=== PATIENT | male | born 1970 | race Caucasian/White ===

== ENCOUNTER 2018-10-22 23:01 | Emergency (ER) | payer OTHER ==
[~2018-10-22] VITALS: Ht 185.4 cm; Wt 111.1 kg
[2018-10-22] MEDS ORDERED: ZYLOPRIM100 MG PO (23:15)
[2018-10-22] MEDS ORDERED: PREDNISONE20 MG PO (23:16)
== END 2018-10-22 23:55 | disposition home or self-care (01) ==
LOC: ED 23:01
DX: M10.9 Gout, unspecified (principal); I10 Essential (primary) hypertension; F17.200 Nicotine dependence, unspecified, uncomplicated; Z88.0 Allergy status to penicillin; Z91.038 Other insect allergy status; Z79.899 Other long term (current) drug therapy
CPT/HCPCS: 99283